=== PATIENT | female | born 2000 | race Caucasian/White ===

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

== ENCOUNTER 2022-07-10 23:35 | Emergency (ER) | payer OTHER, SELFPAY ==
[2022-07-10 23:41] VITALS: BP 121/65; PULSE 77; RESP 18; TEMP 36.6; O2SAT 99; BMI 46.0
[2022-07-11 00:13] LABS: MANUAL DIFF FLAG NO
[2022-07-11 00:16] LABS: Appearance Urine Cloudy; Basophils Absolute Auto 0.1 X10*3/uL (0.0-0.2); Basophils Percent Auto 0.5 % (0-2); Color Urine Yellow; Eosinophils Absolute Auto 0.2 X10*3/uL (0.0-0.4); Eosinophils Percent Auto 1.4 % (0-4); Glucose Urine UA Negative (Negative); Hematocrit 39.2 % (37.0-47.0); Hemoglobin 12.6 g/dl (12.0-16.0); Imm Gran Abs Auto 0.09 X10*3/uL (0.00-0.03); Imm Gran Pct Auto 0.8 % (0.0-0.4); Leukocyte Esterase Urine Negative (Negative); Lymphocytes Absolute Auto 2.5 X10*3/uL (1.2-4.9); Lymphocytes Percent Auto 22.5 % (20-40); Mean Corpuscular HGB Conc 32.1 g/dl (31.0-35.0); Mean Corpuscular Hemoglobin 27.4 pg (27.0-33.0); Mean Corpuscular Volume 85.2 fL (80.0-98.0); Mean Platelet Volume 11.1 fL (9.4-12.3); Monocytes Absolute Auto 0.8 X10*3/uL (0.1-1.2); Monocytes Percent Auto 7.6 % (2-11); Neutrophils Absolute Auto 7.4 x10*3/uL (2.0-8.3); Neutrophils Percent Auto 67.2 % (45-73); Nitrite Urine Negative (Negative); PH 5.5 (5.0-9.0); Platelet Count 255 X10*3/uL (160-400); Red Cell Distribution Width 13.7 % (11.0-16.0); Specific Gravity - Urine >= 1.030 (1.005-1.025); Urine Blood Negative (Negative); Urine Ketones Negative (Negative); Urine Protein Negative (Neg-Trace)
[2022-07-11 00:18] LABS: UPreg QC Valid YES; Urine Pregnancy NEGATIVE (NEGATIVE)
[2022-07-11 00:31] LABS: Alanine Aminotransferase 13 U/L (0-31); Albumin Level 3.9 g/dL (3.5-5.0); Alkaline Phosphatase 84 U/L (39-117); Anion Gap 12 (12-20); Aspartate Amino Transferase 13 U/L (5-31); Bilirubin Direct 0.1 mg/dL (0.0-0.5); Bilirubin Total 0.5 mg/dL (0.0-1.0); Blood Urea Nitrogen 15 mg/dL (9-16); Calcium 8.8 mg/dL (8.4-10.2); Carbon Dioxide 26 mmol/L (22-29); Chloride 105 mmol/L (96-108); Creatinine Clr Calc Pharmacy 174.8; Estimated Glomerular Filt Rate > 60; Glucose Random 105 mg/dL (60-115); Lipase 24 U/L (8-78); Sodium 139 mmol/L (135-145); Total Protein 6.4 g/dL (6.5-8.0)
[2022-07-11 00:38] LABS: HCG Quantitative < 2 mIU/mL
--- NOTE | 2022-07-11 01:17 | ED.ABDPAIN ---
HPI - Abdominal Pain General Chief Complaint: Abdominal Pain Stated Complaint: stomach pain Time Seen by Provider: 07/11/22 01:16 Source: patient Mode of arrival: ambulatory Limitations: no limitations History of Present Illness HPI narrative: Patient with no significant past medical history with increase stress and anxiety been noticing diffuse lower abdominal discomfort for last 3 weeks did few test which were negative patient LMP was 3/15 worried which might be has slight nausea, no vomiting no fever no vaginal discharge no urinary symptoms able to eat well normal bowel movements Related Data Previous Rx's Medication Instructions Recorded naproxen 500 mg tablet 500 mg PO BID PRN pain 10 days #20 09/29/21 tabs prednisone 20 mg tablet 40 mg PO DAILY 5 days #10 tabs 09/29/21 dicyclomine 20 mg tablet 20 mg PO QID PRN abdominal pain 07/11/22 #20 tabs Allergies Allergy/AdvReac Type Severity Reaction Status Date / Time iodine Allergy Hives Verified 07/10/22 23:47 shellfish derived Allergy Hives Verified 07/10/22 23:47 Review of Systems Review of Systems Yes all other systems are reviewed and are negative [facility] Past Medical History Medical History Asthma Bipolar 1 disorder Gallstones Social History Social History Alcohol intake: never Patient Tobacco Use Status: Never used Tobacco Advance Directives: No Advance Directives Information Provided: Yes Physical Exam ED Vital Signs: Vital Signs - 24 hr 07/10/22 23:41 Temperature 98 F Pulse Rate 77 Respiratory Rate 18 Blood Pressure 121/65 Pulse Oximetry 99 Oxygen Delivery Method Room Air BMI result Body Mass Index 46.0 Appearance: Alert. Oriented X3. No acute distress. Eyes: PERRLA, No Nystagmus ENT: Pharynx normal. Oral Mucosa moist Neck: Normal inspection. Neck supple. CVS: Normal heart rate and rhythm. Pulses normal. Respiratory: No respiratory distress. Equal air entry bilateral, no wheezing/rales/rhonchi Abdomen: Soft mild diffuse tenderness no rebound tenderness or guarding Bowel sounds are present, no mass palpable, no CVA tenderness Skin: Skin warm and dry. Normal skin color. Normal skin turgor. Extremities: No lower extremity edema. Neuro: Oriented X 3. No motor deficit. Medical Decision Making Medical Decision Making MDM Narrative: Patient with nonspecific abdominal disc test negative labs are stable likely IBS discharge patient home [facility] Lab Data [facility] Lab Attestation statement: I reviewed the patient's lab results. 07/11/22 00:10 07/11/22 00:10 Labs: Lab Results 07/11/22 07/11/22 07/11/22 Range/Units 00:10 00:10 00:10 WBC 11.0 H (4.8-10.8) X10*3/uL RBC 4.60 (4.20-5.50) X10*6/uL Hgb 12.6 (12.0-16.0) g/dl Hct 39.2 (37.0-47.0) % MCV 85.2 (80.0-98.0) fL MCH 27.4 (27.0-33.0) pg MCHC 32.1 (31.0-35.0) g/dl RDW 13.7 (11.0-16.0) % Plt Count 255 (160-400) X10*3/uL MPV 11.1 (9.4-12.3) fL Immature Gran % (Auto) 0.8 H (0.0-0.4) % Neut % (Auto) 67.2 (45-73) % Lymph % (Auto) 22.5 (20-40) % Graves % (Auto) 7.6 (2-11) % Eos % (Auto) 1.4 (0-4) % Baso % (Auto) 0.5 (0-2) % Lymph # (Auto) 2.5 (1.2-4.9) X10*3/uL Graves # (Auto) 0.8 (0.1-1.2) X10*3/uL Eos # (Auto) 0.2 (0.0-0.4) X10*3/uL Baso # (Auto) 0.1 (0.0-0.2) X10*3/uL Abs Immat Gran (auto) 0.09 H (0.00-0.03) X10*3/uL Absolute Neuts (auto) 7.4 (2.0-8.3) x10*3/uL Absolute Nucleated RBC 0.000 (0.0-0.012) X10*3/uL Nucleated RBC % (auto) 0.0 (0.0-0.2) /100WBC Sodium 139 (135-145) mmol/L Potassium 4.0 (3.3-5.1) mmol/L Chloride 105 (96-108) mmol/L Carbon Dioxide 26 (22-29) mmol/L Anion Gap 12 (12-20) BUN 15 (9-16) mg/dL Creatinine 0.66 (0.5-1.4) mg/dL Estim Creat Clear Calc 174.8 Estimated GFR > 60 Random Glucose 105 (60-115) mg/dL Calcium 8.8 D (8.4-10.2) mg/dL Total Bilirubin 0.5 (0.0-1.0) mg/dL Direct Bilirubin 0.1 (0.0-0.5) mg/dL AST 13 (5-31) U/L ALT 13 (0-31) U/L Alkaline Phosphatase 84 (39-117) U/L Total Protein 6.4 L (6.5-8.0) g/dL Albumin 3.9 (3.5-5.0) g/dL Lipase 24 (8-78) U/L Beta HCG, Quant < 2 mIU/mL Urine Color Urine Appearance Urine pH (5.0-9.0) Ur Specific [place] (1.005-1.025) Urine Protein (Neg-Trace) mg/dL Urine Glucose (UA) (Negative) mg/dL Urine Ketones (Negative) mg/dL Urine Blood (Negative) Urine Nitrite (Negative) Ur Leukocyte Esterase (Negative) Urine Test (NEGATIVE) 07/11/22 07/11/22 Range/Units 00:10 00:10 WBC (4.8-10.8) X10*3/uL RBC (4.20-5.50) X10*6/uL Hgb (12.0-16.0) g/dl Hct (37.0-47.0) % MCV (80.0-98.0) fL MCH (27.0-33.0) pg MCHC (31.0-35.0) g/dl RDW (11.0-16.0) % Plt Count (160-400) X10*3/uL MPV (9.4-12.3) fL Immature Gran % (Auto) (0.0-0.4) % Neut % (Auto) (45-73) % Lymph % (Auto) (20-40) % Graves % (Auto) (2-11) % Eos % (Auto) (0-4) % Baso % (Auto) (0-2) % Lymph # (Auto) (1.2-4.9) X10*3/uL Graves # (Auto) (0.1-1.2) X10*3/uL Eos # (Auto) (0.0-0.4) X10*3/uL Baso # (Auto) (0.0-0.2) X10*3/uL Abs Immat Gran (auto) (0.00-0.03) X10*3/uL Absolute Neuts (auto) (2.0-8.3) x10*3/uL Absolute Nucleated RBC (0.0-0.012) X10*3/uL Nucleated RBC % (auto) (0.0-0.2) /100WBC Sodium (135-145) mmol/L Potassium (3.3-5.1) mmol/L Chloride (96-108) mmol/L Carbon Dioxide (22-29) mmol/L Anion Gap (12-20) BUN (9-16) mg/dL Creatinine (0.5-1.4) mg/dL Estim Creat Clear Calc Estimated GFR Random Glucose (60-115) mg/dL Calcium (8.4-10.2) mg/dL Total Bilirubin (0.0-1.0) mg/dL Direct Bilirubin (0.0-0.5) mg/dL AST (5-31) U/L ALT (0-31) U/L Alkaline Phosphatase (39-117) U/L Total Protein (6.5-8.0) g/dL Albumin (3.5-5.0) g/dL Lipase (8-78) U/L Beta HCG, Quant mIU/mL Urine Color Yellow Urine Appearance Cloudy Urine pH 5.5 (5.0-9.0) Ur Specific [place] >= 1.030 H (1.005-1.025) Urine Protein Negative (Neg-Trace) mg/dL Urine Glucose (UA) Negative (Negative) mg/dL Urine Ketones Negative (Negative) mg/dL Urine Blood Negative (Negative) Urine Nitrite Negative (Negative) Ur Leukocyte Esterase Negative (Negative) Urine Test NEGATIVE (NEGATIVE) Medications Administered Discontinued Medications Generic Name Dose Route Start Last Admin Trade Name Freq PRN Reason Stop Dose Admin Dicyclomine HCl 20 mg 07/11/22 01:24 07/11/22 01:39 Dicyclomine Hcl 10 Mg Capsule PO 07/11/22 01:25 20 mg ONCE ONE Administration Discharge Plan Discharge Clinical Impression: Irritable bowel syndrome Patient Disposition: Home, Self-Care Instructions: Irritable Bowel Syndrome (ED) Additional Instructions: Likely you have IBS Drink plenty of fluids Bentyl for bowel spasm and gas Follow with PCP Prescriptions: New dicyclomine 20 mg tablet 20 mg PO QID PRN (Reason: abdominal pain) Qty: 20 0RF No Action naproxen 500 mg tablet 500 mg PO BID PRN (Reason: pain) 10 Days Qty: 20 0RF prednisone 20 mg tablet 40 mg PO DAILY 5 Days Qty: 10 0RF
[2022-07-11] MEDS: Dicyclomine HCl 10 MG CAPSULE 20 MG PO (01:39)
== END 2022-07-11 01:49 | disposition home or self-care (01) ==
PROVIDERS: Emergency Provider Internal Medicine; PCP Hospitalist
DX: K58.9 Irritable bowel syndrome, unspecified (principal); R10.30 Lower abdominal pain, unspecified
CPT/HCPCS: 36415; 80048; 80076; 81003; 81025; 83690; 84702; 85025; 99282; 99283

== ENCOUNTER 2022-07-23 06:33 | Emergency (ER) | payer OTHER, SELFPAY ==
--- NOTE | 2022-07-23 | ECG_ITS ---
Test Reason : CHEST PAIN Blood Pressure : / mmHG Vent. Rate : 081 BPM Atrial Rate : 081 BPM P-R Int : 178 ms QRS Dur : 090 ms QT Int : 382 ms P-R-T Axes : 005 017 021 degrees QTc Int : 443 ms Poor data quality, interpretation may be adversely affected Normal sinus rhythm Normal ECG No previous ECGs available Referred By: Generic ED Physician Electronically Signed By:NICHOLE CEDILLO MD
--- NOTE | ~2022-07-23 | XR_ITS ---
EXAMINATION: XR CHEST CLINICAL INFORMATION: Chest pain COMPARISON: None available. TECHNIQUE: 2 views of the chest were obtained. FINDINGS: No significant abnormality is noted involving the heart, lungs, mediastinum, bony thorax or soft tissues. XR/XR chest 2V IMPRESSION: Unremarkable chest examination.
[2022-07-23 06:51] VITALS: BP 124/72; PULSE 83; RESP 17; TEMP 36.9; O2SAT 98; BMI 46.0
[2022-07-23 07:07] VITALS: BP 124/72; PULSE 81; RESP 18; TEMP 36.9; O2SAT 98
[2022-07-23 07:14] LABS: Hematocrit 41.7 % (37.0-47.0); Hemoglobin 13.2 g/dl (12.0-16.0); Mean Corpuscular HGB Conc 31.7 g/dl (31.0-35.0); Mean Corpuscular Hemoglobin 27.1 pg (27.0-33.0); Mean Corpuscular Volume 85.6 fL (80.0-98.0); Platelet Count 230 X10*3/uL (160-400); Red Blood Count 4.87 X10*6/uL (4.20-5.50); Red Cell Distribution Width 13.3 % (11.0-16.0); White Blood Count 7.9 X10*3/uL (4.8-10.8)
--- NOTE | 2022-07-23 07:21 | ED.CHESTPAIN ---
HPI - Chest Pain General Chief Complaint: Chest Pain Stated Complaint: Chest pain/ throwing up blood Time Seen by Provider: 07/23/22 06:56 Source: patient Mode of arrival: ambulatory Limitations: no limitations History of Present Illness HPI narrative: This is a 22 years old female presented to the emergency department complaining of vomiting chest discomfort upper abdominal pain, she states that she noted some blood in the vomiting. She has history of obesity, microcytic anemia, status post cholecystectomy. She states the pain is getting better at this time MD complaint: chest pain Onset (ago): hour(s) (3) Prior episodes: No Onset: during rest Pain location: substernal Pain radiation: none Quality: aching Relieving factors: nothing Exacerbating factors: nothing Context: recent illness Associated symptoms: vomiting Related Data Previous Rx's Medication Instructions Recorded naproxen 500 mg tablet 500 mg PO BID PRN pain 10 days #20 09/29/21 tabs prednisone 20 mg tablet 40 mg PO DAILY 5 days #10 tabs 09/29/21 dicyclomine 20 mg tablet 20 mg PO QID PRN abdominal pain 07/11/22 #20 tabs Allergies Allergy/AdvReac Type Severity Reaction Status Date / Time iodine Allergy Hives Verified 07/10/22 23:47 shellfish derived Allergy Hives Verified 07/10/22 23:47 Review of Systems Constitutional: Constitutional: Reports no additional constitutional complaints ENT: Reports system reviewed and no additional complaints, except as documented Cardiovascular: Cardiovascular: Reports chest pain Gastrointestinal: Gastrointestinal: Reports vomiting PMFSH Past Medical History Medical History Asthma Bipolar 1 disorder Gallstones Social History Social History Alcohol intake: current Alcohol intake frequency: holidays/special occasions only Patient Tobacco Use Status: Never used Tobacco Smoked in Last 30 Days: Yes Use of substances other than those prescribed or required for medical reasons: No Advance Directives: No Advance Directives Information Provided: Yes Physical Exam Vital Signs: Vital Signs: Last Vital Signs Temp 98.2 F 07/23/22 08:57 Pulse 98 07/23/22 08:57 Resp 18 07/23/22 08:57 BP 122/73 07/23/22 08:57 Pulse Ox 100 07/23/22 08:57 O2 Del Method Room Air 07/23/22 08:57 BMI result Body Mass Index 46.0 Const: Other: She looks well she has no toxic-appearing General: cooperative, comfortable and no acute distress Orientation/consciousness: oriented to person, oriented to place, oriented to time and patient oriented x3 HEENT: Head: Yes normal to inspection General nose exam: Normal external nose present Face and sinus: Yes normal facial exam Mouth: Normal oral and palatal mucosa present Neck: Neck: Yes normal visual inspection, Yes full ROM and Yes no lymphadenopathy Chest: Chest palpation & inspection: normal inspection of the chest Resp: Effort & Inspection: normal respiratory effort Auscultation: clear to auscultation bilaterally Cardio: Jugular venous distension: no JVD Rate: regular rate Rhythm: regular rhythm GI: Inspection: Yes normal to inspection Palpation (GI): Soft to palpation, not firm, nontender and no guarding Skin: General skin exam: no rashes or lesions noted and elasticity normal Lesions: no lesions Rashes: no rashes Trauma: no lacerations or abrasions Neuro: General: oriented to person, oriented to place, oriented to time and patient oriented x3 Cranial nerves: Yes CN's II-XII intact bilaterally Course Reevaluation(s) Reevaluation #1: She is feeling much better ,she is asymptomatic at this time Most likely she had a Myranda-Izquierdo tear Time: 09:51 Reevaluation #2: Completely asymptomatic and eating [employer] food brought to her by friend Time: 11:38 Medications Administered Discontinued Medications Generic Name Dose Route Start Last Admin Trade Name Freq PRN Reason Stop Dose Admin Sodium Chloride 1,000 mls @ 999 mls/hr 07/23/22 07:30 07/23/22 08:47 Ns IVCONT 07/23/22 08:30 Infused .Q1H1M [facility] Infusion Ondansetron HCl 4 mg 07/23/22 07:20 07/23/22 07:48 Ondansetron Hcl 4 Mg/2 Ml Vial IVPUSH 07/23/22 07:21 4 mg ONCE ONE Administration Medical Decision Making Medical Decision Making MDM Narrative: Patient presented with nausea vomiting chest pain and possible hematemesis will check labs reassess , clinically she looks well she has stable vital signs she is not tachycardic. 12.10 pt felt better labs wnl ,tolerated po well most likey viral illness and possible Myranda-Izquierdo tear Differential Diagnosis Differential Diagnoses: The differential diagnosis associated with the presentation includes Viral illness/peptic ulcer disease/esophagitis Admission/Observation Consideration of admission/observation: Escalation of care including admission/observation considered Lab Data MDM Lab Attestation statement: I reviewed the patient's lab results. normal labs 07/23/22 07:08 07/23/22 07:08 Labs: Lab Results 07/23/22 07/23/22 07/23/22 Range/Units 07:08 07:08 09:59 WBC 7.9 (4.8-10.8) X10*3/uL RBC 4.87 (4.20-5.50) X10*6/uL Hgb 13.2 (12.0-16.0) g/dl Hct 41.7 (37.0-47.0) % MCV 85.6 (80.0-98.0) fL MCH 27.1 (27.0-33.0) pg MCHC 31.7 (31.0-35.0) g/dl RDW 13.3 (11.0-16.0) % Plt Count 230 (160-400) X10*3/uL MPV 11.0 (9.4-12.3) fL Absolute Nucleated RBC 0.000 (0.0-0.012) X10*3/uL Nucleated RBC % (auto) 0.0 (0.0-0.2) /100WBC Sodium 142 (135-145) mmol/L Potassium 3.7 (3.3-5.1) mmol/L Chloride 107 (96-108) mmol/L Carbon Dioxide 28 (22-29) mmol/L Anion Gap 11 L (12-20) BUN 17 H (9-16) mg/dL Creatinine 0.73 (0.5-1.4) mg/dL Estim Creat Clear Calc 158.0 Estimated GFR > 60 Random Glucose 100 (60-115) mg/dL Calcium 9.1 (8.4-10.2) mg/dL Total Bilirubin 0.3 (0.0-1.0) mg/dL AST 13 (5-31) U/L ALT 12 (0-31) U/L Alkaline Phosphatase 114 (39-117) U/L Total Protein 6.8 (6.5-8.0) g/dL Albumin 4.0 (3.5-5.0) g/dL Urine Color Urine Appearance Urine pH (5.0-9.0) Ur Specific [place] (1.005-1.025) Urine Protein (Neg-Trace) mg/dL Urine Glucose (UA) (Negative) mg/dL Urine Ketones (Negative) mg/dL Urine Blood (Negative) Urine Nitrite (Negative) Ur Leukocyte Esterase (Negative) Urine RBC (0-2) /HPF Urine WBC (0-5) /HPF Ur Squamous Epith Cells (0-2) /HPF Urine Bacteria (None Seen) Hyaline Casts (0-2) /LPF Urine Test (NEGATIVE) Urine Opiates Screen Not Detected (Not Detect) Urine Fentanyl Screen Not Detected (Not Detect) Ur Barbiturates Screen Not Detected (Not Detect) Ur Phencyclidine Scrn Not Detected (Not Detect) Ur Amphetamines Screen Not Detected (Not Detect) U Benzodiazepines Scrn Not Detected (Not Detect) Urine Cocaine Screen Not Detected (Not Detect) U Marijuana (THC) Screen POSITIVE H (Not Detect) 07/23/22 07/23/22 Range/Units 10:01 10:01 WBC (4.8-10.8) X10*3/uL RBC (4.20-5.50) X10*6/uL Hgb (12.0-16.0) g/dl Hct (37.0-47.0) % MCV (80.0-98.0) fL MCH (27.0-33.0) pg MCHC (31.0-35.0) g/dl RDW (11.0-16.0) % Plt Count (160-400) X10*3/uL MPV (9.4-12.3) fL Absolute Nucleated RBC (0.0-0.012) X10*3/uL Nucleated RBC % (auto) (0.0-0.2) /100WBC Sodium (135-145) mmol/L Potassium (3.3-5.1) mmol/L Chloride (96-108) mmol/L Carbon Dioxide (22-29) mmol/L Anion Gap (12-20) BUN (9-16) mg/dL Creatinine (0.5-1.4) mg/dL Estim Creat Clear Calc Estimated GFR Random Glucose (60-115) mg/dL Calcium (8.4-10.2) mg/dL Total Bilirubin (0.0-1.0) mg/dL AST (5-31) U/L ALT (0-31) U/L Alkaline Phosphatase (39-117) U/L Total Protein (6.5-8.0) g/dL Albumin (3.5-5.0) g/dL Urine Color Yellow Urine Appearance Clear Urine pH 8.5 (5.0-9.0) Ur Specific [place] 1.020 (1.005-1.025) Urine Protein Negative (Neg-Trace) mg/dL Urine Glucose (UA) Negative (Negative) mg/dL Urine Ketones Negative (Negative) mg/dL Urine Blood Negative (Negative) Urine Nitrite Negative (Negative) Ur Leukocyte Esterase Negative (Negative) Urine RBC 0-2 (0-2) /HPF Urine WBC 0-5 (0-5) /HPF Ur Squamous Epith Cells 3-5 (0-2) /HPF Urine Bacteria 1+ (None Seen) Hyaline Casts 0-2 (0-2) /LPF Urine Test NEGATIVE (NEGATIVE) Urine Opiates Screen (Not Detect) Urine Fentanyl Screen (Not Detect) Ur Barbiturates Screen (Not Detect) Ur Phencyclidine Scrn (Not Detect) Ur Amphetamines Screen (Not Detect) U Benzodiazepines Scrn (Not Detect) Urine Cocaine Screen (Not Detect) U Marijuana (THC) Screen (Not Detect) Independent Interpretation I performed an independent interpretation of an: EKG and Plain X-Ray Interpretation: Normal sinus rhythm rate [address]-T change normal CXR Radiology Impression Discussion of test interpretation with radiology: I have reviewed the radiologist's reading. Radiologist Impression: EXAMINATION: XR CHEST CLINICAL INFORMATION: Chest pain COMPARISON: None available. TECHNIQUE: 2 views of the chest were obtained. FINDINGS: No significant abnormality is noted involving the heart, lungs, mediastinum, bony thorax or soft tissues. XR/XR chest 2V IMPRESSION: Unremarkable chest examination. Dictated By: Jeffy Arellano MD Signed By: <Electronically signed by Jeffy Arellano MD in OV> 07/23/22 0775 Discharge Plan Discharge Clinical Impression: Vomiting Patient Disposition: Home, Self-Care Instructions: Acute Nausea and Vomiting (ED) Prescriptions: No Action naproxen 500 mg tablet 500 mg PO BID PRN (Reason: pain) 10 Days Qty: 20 0RF prednisone 20 mg tablet 40 mg PO DAILY 5 Days Qty: 10 0RF dicyclomine 20 mg tablet 20 mg PO QID PRN (Reason: abdominal pain) Qty: 20 0RF Referrals: Alin Cam MD [Primary Care Provider] - 3 days Interventions: ED Discharge Assessment Last Done: 07/23/22 11:54 Discharge Date/Time: 07/23/22 11:56
[2022-07-23 07:36] LABS: Alanine Aminotransferase 12 U/L (0-31); Alkaline Phosphatase 114 U/L (39-117); Anion Gap 11 (12-20); Aspartate Amino Transferase 13 U/L (5-31); Bilirubin Total 0.3 mg/dL (0.0-1.0); Blood Urea Nitrogen 17 mg/dL (9-16); Calcium 9.1 mg/dL (8.4-10.2); Carbon Dioxide 28 mmol/L (22-29); Chloride 107 mmol/L (96-108); Estimated Glomerular Filt Rate > 60; Glucose Random 100 mg/dL (60-115); Potassium 3.7 mmol/L (3.3-5.1); Sodium 142 mmol/L (135-145); Total Protein 6.8 g/dL (6.5-8.0)
[2022-07-23] MEDS: ondansetron HCL 4 MG/2 ML VIAL IVPUSH (07:48)
[2022-07-23] MEDS: 0.9 % Sodium Chloride 1,000 ML 999 ML IVCONT (07:49)
--- NOTE | 2022-07-23 08:53 | PC.NURSE ---
Alert and oriented X3. IV fluids completed and ambulated to bathroom. States feeling better after fluids.
[2022-07-23 08:57] VITALS: BP 122/73; PULSE 98; RESP 18; TEMP 36.8; O2SAT 100
[2022-07-23 10:19] LABS: Appearance Urine Clear; Color Urine Yellow; Glucose Urine UA Negative (Negative); Leukocyte Esterase Urine Negative (Negative); Nitrite Urine Negative (Negative); PH 8.5 (5.0-9.0); Urine Blood Negative (Negative); Urine Ketones Negative (Negative); Urine Protein Negative (Neg-Trace)
[2022-07-23 10:22] LABS: Amphetamine Screen Urine Not Detected (Not Detect); Barbiturates, Urine Not Detected (Not Detect); Benzodiazepines Screen Urine Not Detected (Not Detect); Cannabinoid Screen Urine POSITIVE (Not Detect); Cocaine Screen Urine Not Detected (Not Detect); Fentanyl, urine Not Detected (Not Detect); Opiate Screen Urine Not Detected (Not Detect); Phencyclidine Screen Urine Not Detected (Not Detect)
[2022-07-23 10:22] LABS: Bacteria Urine 1+ (None Seen); Hyaline Casts Urine 0-2 /LPF (0-2); RBC Urine 0-2 /HPF (0-2); Urine Pregnancy NEGATIVE (NEGATIVE); WBC Urine 0-5 /HPF (0-5)
[2022-07-23 10:23] LABS: UPreg QC Valid YES
== END 2022-07-23 11:56 | disposition home or self-care (01) ==
PROVIDERS: Emergency Provider Emergency Medicine; PCP Hospitalist
DX: R11.10 Vomiting, unspecified (principal); F12.90 Cannabis use, unspecified, uncomplicated; Z79.899 Other long term (current) drug therapy
CPT/HCPCS: 36415; 71046; 80053; 80307; 81001; 81025; 85027; 93005; 96361; 96374; 99284; 99285; J2405

== ENCOUNTER 2024-01-27 22:52 | Emergency (ER) | payer OTHER, SELFPAY ==
--- NOTE | ~2024-01-27 | XR_ITS ---
EXAMINATION: XR CHEST CLINICAL INFORMATION: Cough. COMPARISON: July 23, 2022. TECHNIQUE: 2 views of the chest were obtained. FINDINGS: No significant abnormality is noted involving the heart, lungs, mediastinum, bony thorax or soft tissues. XR/XR chest 2V IMPRESSION: Unremarkable examination. Electronically signed by: Ko Frias MD 01/27/2024 11:51 PM [facility]
[2024-01-27 23:02] VITALS: BP 123/74; PULSE 113; RESP 20; TEMP 36.8; O2SAT 95; BMI 55.1
[2024-01-27 23:48] LABS: COVID-19 Test Negative (Negative); IDNOW Serial# 58CA691E
[2024-01-27 23:52] LABS: IDNOW Serial# 9DB6401D; Influenza A Negative (Negative); Influenza B2 Negative (Negative)
--- NOTE | 2024-01-28 00:21 | ED_ITS ---
HPI - General Adult General Chief complaint: Upper Respiratory Symptoms Stated complaint: Cough/URI Time Seen by Provider: 01/28/24 00:20 Source: patient, RN notes reviewed and old records reviewed Mode of arrival: ambulatory Limitations: no limitations History of Present Illness ED Provider: Mulu RAJPUT narrative: 23-year-old female with past medical history significant for asthma presents for evaluation of cough and shortness of breath. The patient reports her symptoms started 2 days ago. She reports coughing clear sputum. She reports nasal and sinus congestion. Denies any fevers or chills She reports that her mother recently had bronchitis pain The patient reports that she is out of her albuterol inhaler No other complaints or concerns at this time Related Data Previous Rx's ?Medication ?Instructions ?Recorded naproxen 500 mg tablet 500 mg PO BID PRN pain 10 days #20 09/29/21 tabs prednisone 20 mg tablet 40 mg (2 x 20 mg) PO DAILY 5 days 09/29/21 #10 tabs dicyclomine 20 mg tablet 20 mg PO QID PRN abdominal pain 07/11/22 #20 tabs albuterol sulfate 90 mcg/actuation 2 inh inhalation Q4-6H PRN 01/28/24 breath activated powder shortness of breath or wheezing #1 inhaler,sensor ea prednisone 20 mg tablet 40 mg (2 x 20 mg) PO DAILY #8 tabs 01/28/24 Allergies Allergy/AdvReac Type Severity Reaction Status Date / Time iodine Allergy Hives Verified 01/27/24 23:03 shellfish derived Allergy Hives Verified 01/27/24 23:03 Review of Systems Constitutional: Constitutional: Denies body ache(s), Denies chills, Denies fever(s) and Denies headache(s) ENT: Denies vertigo, Denies dizziness and Denies headache(s) Cardiovascular: Cardiovascular: Denies chest pain and Reports dyspnea Respiratory: Respiratory: Reports cough, Reports dyspnea and Reports wheezing Gastrointestinal: Gastrointestinal: Denies abdominal pain, Denies nausea and Denies vomiting Musculoskeletal: Musculoskeletal: Denies back pain Integumentary/Breasts: Skin/Breast: Denies rash Neurologic: Denies vertigo, Denies dizziness and Denies headache(s) Psychiatric: Psychiatric: Denies anxiety Allergic/Immunologic: Allergic/Immunologic: Reports wheezing PMFSH Past Medical History Medical History Asthma Bipolar 1 disorder Gallstones Social History Social History Alcohol intake: current Alcohol intake frequency: holidays/special occasions only Patient Tobacco Use Status: Never used Tobacco Advance Directives: No Do you have a plan to hurt others: No Plan Physical Exam ED Vital Signs: Vital Signs - 24 hr 01/27/24 23:02 Temperature 98.3 F Pulse Rate 113 H Respiratory Rate 20 Blood Pressure 123/74 Pulse Oximetry 95 Oxygen Delivery Method Room Air BMI result Body Mass Index 55.1 Const General: healthy appearing, comfortable, no acute distress, alert and awake Nutritional Appearance: well nourished Orientation/consciousness: patient oriented x3 HENMT Head: Yes normocephalic and Yes atraumatic Ears: TM's normal bilaterally Eyes Eyelids: Yes eyelids normal Conjunctivae: conjunctivae normal Sclerae: sclerae normal Corneas: corneas normal Pupils: Equal, round and reactive pupils present EOM: EOMs intact bilaterally Neck Neck: Yes full ROM Resp Effort & Inspection: normal respiratory effort, able to speak in complete senten wallace and not labored Cardio Rate: regular rate Rhythm: regular rhythm Skin General skin exam: elasticity normal Neuro General: patient oriented x3 Cranial nerves: Yes Equal, round and reactive pupils present and Yes Bilaterally intact EOM present Cognition (Neuro): normal cognition Extrem Other: Moving all extremities well without any obvious deformities Medications Administered Discontinued Medications Generic Name Dose Route Start Last Admin Trade Name Freq PRN Reason Stop Dose Admin Albuterol/Ipratropium 3 ml 01/28/24 00:26 01/28/24 00:40 Albuterol/Iprat 2.5/0.5mg 3 Ml Ampul.Neb INHALE 01/28/24 00:27 3 ml ONCE ONE Administration Medical Decision Making Medical Decision Making MDM Narrative: 23-year-old female presents for evaluation of flu-like symptoms. She had a viral testing with influenza, COVID and RSV which was negative. Chest x-ray is clear, without signs of pneumonia. The patient be treated with albuterol and prednisone for upper respiratory infection with minor asthma exacerbation. Her vital signs are stable Differential Diagnosis Differential Diagnoses: The differential diagnosis associated with the presentation includes Asthma exacerbation Upper respiratory infection Bronchitis Pneumonia Viral syndrome Lab Data Labs: Lab Results 01/27/24 Range/Units 23:30 COVID-19 (PRASHANTH) Negative (Negative) COVID-19 Clin Com See Note Influenza Type A (HANNA) Negative (Negative) Influenza Type B (HANNA) Negative (Negative) Influenza A & B Note See Note Independent Interpretation I performed an independent interpretation of an: Plain X-Ray Interpretation: No focal infiltrates Radiology Impression Discussion of test interpretation with radiology: I have reviewed the radiologist's reading. Radiologist Impression: FINDINGS: No significant abnormality is noted involving the heart, lungs, mediastinum, bony thorax or soft tissues. XR/XR chest 2V IMPRESSION: Unremarkable examination. Electronically signed by: Ko Frias MD 01/27/2024 11:[address] [facility] Discharge Plan Discharge Clinical Impression: Upper respiratory infection Patient Disposition: Home, Self-Care Instructions: Upper Respiratory Infection (ED) Additional Instructions: Your chest x-ray was normal, your viral swabs were negative. Take prednisone 40 mg daily for the next 4 days starting tomorrow as your 1st dose was given today. Use albuterol as needed for shortness of breath and wheezing Prescriptions: New prednisone 20 mg tablet 40 mg PO DAILY Qty: 8 0RF albuterol sulfate 90 mcg/actuation aero powdr breath act w/sensor 2 inh inhalation Q4-6H PRN (Reason: shortness of breath or wheezing) Qty: 1 0RF No Action naproxen 500 mg tablet 500 mg PO BID PRN (Reason: pain) 10 Days Qty: 20 0RF prednisone 20 mg tablet 40 mg PO DAILY 5 Days Qty: 10 0RF dicyclomine 20 mg tablet 20 mg PO QID PRN (Reason: abdominal pain) Qty: 20 0RF Print Language: Azeri
[2024-01-28] MEDS: Albuterol/Iprat 2.5/0.5MG 3 ML AMPUL.NEB INHALE (00:40)
[2024-01-28 00:45] VITALS: PULSE 102; RESP 18; O2SAT 96
[2024-01-28] MEDS: predniSONE 20 MG TABLET 40 MG PO (00:51)
[2024-01-28 01:04] VITALS: BP 123/74; PULSE 102; RESP 18; TEMP 36.8; O2SAT 95
== END 2024-01-28 01:04 | disposition home or self-care (01) ==
PROVIDERS: Emergency Provider Internal Medicine; PCP Internal Medicine
DX: J06.9 Acute upper respiratory infection, unspecified (principal); R05.9 Cough, unspecified; R06.02 Shortness of breath; Z11.52 Encounter for screening for COVID-19; Z79.899 Other long term (current) drug therapy
CPT/HCPCS: 71046; 87502; 87635; 94640; 99283

== ENCOUNTER 2025-01-02 14:19 | Outpatient (AMB) | payer OTHER, SELFPAY ==
--- NOTE | 2025-01-02 14:19 | MHC.OFFVIS ---
Vital Signs 01/02/25 14:29 Height 5 ft 4 in Weight 248 lb BMI 42.6 BP 122/70 Intake Visit Reasons: New patient excessive and frequent menses Director Emergency: Director Emergency Present (Silvana) Accompanied by: Self / Same As Patient Allergies iodine Allergy (Verified 01/02/25 14:26) Hives shellfish derived Allergy (Verified 01/02/25 14:26) Hives Medication List - Last Reconciled 01/02/25 by Danyell Kaur CNM No Known Home Meds Is last menstrual period known: Yes Last menstrual period: 12/03/24 Post menopausal: No Patient : No HPI HPI New patient excessive and frequent menses: Details: This is a very lengthy visit for this patient. She is a 24-year-old female she has never been here before. She is seeking help with her heavy painful periods. She has been overweight her entire life and tells me that she was 100 lb when she was 7 years old and only got bigger since she was 300+ lb last year and she has been working on trying to lose weight herself this past year. She has been unsuccessful finding a primary care provider since she was last seen some years ago [facility]. She was raised 1st by her mother and then DCF gotten involved and she was then with her grandmother so she grew up between [place] and the [facility] and is now back in [place] again. 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 She is working on trying to have a 1554-0556 calorie diet every day and goes walking many days with her friend who is also trying to lose weight who is 300 and something lb and also she says she is active in her job. She is beginning to learn a lot about the details of losing weight and paying attention and is noticing when there maybe other influences around her that are not necessarily helpful such as others that eat very very large portions and also sugary ingredients in shakes masking as is healthy option. She used to have a therapist but felt that the age difference was too great and so ended that relationship. She used to be on control pills in her teenage years but she went off of them because she felt they made her crazy. Also she was on progestin only pills which she [facility] visit consult and she says they made her crazy to she did try them for 6 months but ultimately stopped those in thinking back about her history about pills she recalled during this visit that she was also on medicines for depression and that may have been influencing her perception about what it was making her crazy. She says she did have a pelvic exam once in [place] and it was not very comfortable and she started bleeding during the exam she says that they were not able to see very much she acknowledges she probably was clenching quite a bit but she was pretty uncomfortable. She was hoping that there would be something that she could get that was not hormonal that how would help with her periods but I had to inform her that that was in fact not the case. She also is sexually active sometimes with her ex-fiance who she is still sees occasionally. She says she quit smoking a few weeks ago and she is trying very hard not to start again. She is starting to become aware of things that trigger eating such as boredom or being tired and sometimes stress eating as well, In discussing how she feels having lost what she has so far she acknowledged that she does feel when people are looking at her but often that is depending on what she is wearing as well. Discussed the challenges of being overweight and dealing with people's judgment and also the different ways person's can be treated. Discussed her supports and what makes her feel good and she does have certain things that are helpful to her. She and her friend are going on a cruise that her friend is paying for. Discussed the dangers of being on a cruise and the temptations of food and they have already talked about that and are looking at it and we discussed some preliminary plans for avoiding temptations. She is planning on also being very active on the cruise with swimming and walking. Also of challenge is that she has been trying for very long time to get a primary care provider because she feels she would be interested and would benefit from the weight loss injectable medications that people are having success with. She does not think she would be interested in surgery for weight loss because she had gallbladder surgery and she had some complications after the so she would rather avoid surgery if she could. She also has had some cardiac issues. She is able to see some specialists but she has not been able to find a primary care provider and in fact after waiting months and months for an appointment it got canceled and now is not rescheduled until the following year next August. The primary care person apparently as through [facility] though the specialists that she used to see were all up through the [facility] and she got referred to me via an urgent care center, though she says not the 1 connected with [facility]. I did suggest that she may want to consider changing her insurance and trying to find a primary care provider sooner within another system either the [facility] if that is suits her or [facility] if that is possible. In either case, consolidating care to 1 or 2 systems might be more beneficial than care that is not there and disjointed. Discussed nutrition in general and the benefits of vegetables and proteins versus carbs and she has already becoming very aware of unintended calories and sugar etc.. I did ask her what she would like to do as regards her periods and she decided she would like to try going back to the combination pills she had as a teenager and since she is no longer dealing with as many of the psychological issues and the psych meds/depression meds that maybe she will do better so I am going to try her on a low-dose combination OCP but given her BMI I am recommending that she consider making condoms her primary control method and see if we can use the control pill to help improve her menses and approach it from that point of view I did review all the negative side effects of control pills that she may experience and those that would be important to report including severe severe headaches or leg pain. Her control was in normal limits today so it would be acceptable to try her on these. I told her we will see her in 3 months and see how she does and I explained it very carefully how to start the pills how to keep track and how to use the day of the week sticker so that she has always clear on what pill she is taking for what day and does not miss. Discussed side effects such as headaches breast tenderness nausea breakthrough spotting etc. also I recommend that she start the pills on the 1st really heavy day of her next period which should be coming up soon so I recommend she fern picker the pills soon. [facility] Medical History (Updated 01/02/25 @ 16:16 by Danyell Kaur CNM) PVC (premature ventricular contraction) Gallstones Asthma Surgical History (Updated 01/02/25 @ 14:23 by Silvana Best MA) History of cholecystectomy Family History (Updated 01/02/25 @ 14:24 by Silvana Best MA) Maternal Grandfather Colon cancer Maternal Grandmother Colon cancer Maternal Uncle Colon cancer Social History (Updated 01/02/25 @ 14:25 by Silvana Best MA) Household Members: None Alcohol intake: current Alcohol intake frequency: holidays/special occasions only Patient Tobacco Use Status: Never used Tobacco Current occupational status: employed and student Current occupation: [employer] Female Reproductive History Menstrual Age of Menarche: 14 Date of last menstrual period: 12/03/24 control method: none Total pregnancies: 0 Physical Exam Exam Exam: PE deferred except to note and discuss BMI and body self-awareness and weight and blood pressure. Vital Signs: Last Vital Signs BP 122/70 01/02/25 14:29 BMI result Body Mass Index 42.6 Assessment & Plan Assessment & Plan (1) Morbid obesity with BMI of 40.0-44.9, adult: Comment: Is working hard on changing lifelong patterns a/nd habits. Would appreciate help with this. needs a primary care provider. suggestions given Code(s): E66.01 - Morbid (severe) obesity due to excess calories; Z68.41 - Body mass index [BMI] 40.0-44.9, adult Category: Medical (2) Lifelong obesity: Comment: Patient says she was on 100 lb by the time she was 7 years old and was 300+ lb with a BMI of 55 as recently as last year.... She is working hard to address lifelong eating patterns in lifestyle and would appreciate help with this. Code(s): E66.9 - Obesity, unspecified Category: Medical (3) Primary dysmenorrhea: Comment: Usually the 3rd day also occasionally late. Code(s): N94.4 - Primary dysmenorrhea Category: Medical (4) control counseling: Code(s): Z30.09 - Encounter for other general counseling and advice on contraception Category: Medical (5) Counseling for initiation of control method: Comment: Patient is electing to try the combination OCPs again she is normotensive and quit smoking some weeks ago danger signs reviewed and side effects reviewed in great detail. Given BMI I recommend condoms as her primary control method and OCPs to see if they will ameliorate her menses. Code(s): Z30.09 - Encounter for other general counseling and advice on contraception Category: Medical (6) Screening for malignant neoplasm of cervix: Comment: Today we addressed the dysmenorrhea control morbid obesity issues in great detail next visit will include a risk control consultant PE with Pap and testing for STIs and ocp check Code(s): Z12.4 - Encounter for screening for malignant neoplasm of cervix Category: Medical Plan This is a very lengthy visit for this patient. She is a 24-year-old female she has never been here before. She is seeking help with her heavy painful periods. She has been overweight her entire life and tells me that she was 100 lb when she was 7 years old and only got bigger since she was 300+ lb last year and she has been working on trying to lose weight herself this past year. She has been unsuccessful finding a primary care provider since she was last seen some years ago [facility]. She was raised 1st by her mother and then DCF gotten involved and she was then with her grandmother so she grew up between [place] and the [place] and is now back in [place] again. 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 She is working on trying to have a 2265-7168 calorie diet every day and goes walking many days with her friend who is also trying to lose weight who is 300 and something lb and also she says she is active in her job. She is beginning to learn a lot about the details of losing weight and paying attention and is noticing when there maybe other influences around her that are not necessarily helpful such as others that eat very very large portions and also sugary ingredients in shakes masking as is healthy option. She used to have a therapist but felt that the age difference was too great and so ended that relationship. She used to be on control pills in her teenage years but she went off of them because she felt they made her crazy. Also she was on progestin only pills which she [facility] visit consult and she says they made her crazy to she did try them for 6 months but ultimately stopped those in thinking back about her history about pills she recalled during this visit that she was also on medicines for depression and that may have been influencing her perception about what it was making her crazy. She says she did have a pelvic exam once in [place] and it was not very comfortable and she started bleeding during the exam she says that they were not able to see very much she acknowledges she probably was clenching quite a bit but she was pretty uncomfortable. She was hoping that there would be something that she could get that was not hormonal that how would help with her periods but I had to inform her that that was in fact not the case. She also is sexually active sometimes with her ex-fiance who she is still sees occasionally. She says she quit smoking a few weeks ago and she is trying very hard not to start again. She is starting to become aware of things that trigger eating such as boredom or being tired and sometimes stress eating as well, In discussing how she feels having lost what she has so far she acknowledged that she does feel when people are looking at her but often that is depending on what she is wearing as well. Discussed the challenges of being overweight and dealing with people's judgment and also the different ways person's can be treated. Discussed her supports and what makes her feel good and she does have certain things that are helpful to her. She and her friend are going on a cruise that her friend is paying for. Discussed the dangers of being on a cruise and the temptations of food and they have already talked about that and are looking at it and we discussed some preliminary plans for avoiding temptations. She is planning on also being very active on the cruise with swimming and walking. Also of challenge is that she has been trying for very long time to get a primary care provider because she feels she would be interested and would benefit from the weight loss injectable medications that people are having success with. She does not think she would be interested in surgery for weight loss because she had gallbladder surgery and she had some complications after the so she would rather avoid surgery if she could. She also has had some cardiac issues. She is able to see some specialists but she has not been able to find a primary care provider and in fact after waiting months and months for an appointment it got canceled and now is not rescheduled until the following year next August. The primary care person apparently as through [facility] though the specialists that she used to see were all up through the [facility] and she got referred to me via an urgent care center, though she says not the 1 connected with [facility]. I did suggest that she may want to consider changing her insurance and trying to find a primary care provider sooner within another system either the [facility] if that is suits her or [facility] if that is possible. In either case, consolidating care to 1 or 2 systems might be more beneficial than care that is not there and disjointed. Discussed nutrition in general and the benefits of vegetables and proteins versus carbs and she has already becoming very aware of unintended calories and sugar etc.. I did ask her what she would like to do as regards her periods and she decided she would like to try going back to the combination pills she had as a teenager and since she is no longer dealing with as many of the psychological issues and the psych meds/depression meds that maybe she will do better so I am going to try her on a low-dose combination OCP but given her BMI I am recommending that she consider making condoms her primary control method and see if we can use the control pill to help improve her menses and approach it from that point of view I did review all the negative side effects of control pills that she may experience and those that would be important to report including severe severe headaches or leg pain. Her control was in normal limits today so it would be acceptable to try her on these. I told her we will see her in 3 months and see how she does and I explained it very carefully how to start the pills how to keep track and how to use the day of the week sticker so that she has always clear on what pill she is taking for what day and does not miss. Discussed side effects such as headaches breast tenderness nausea breakthrough spotting etc. also I recommend that she start the pills on the 1st really heavy day of her next period which should be coming up soon so I recommend she fern picker the pills soon. This note is constructed using voice recognition software. While every effort has been made to ensure accuracy, finisher brush errors may have been included. Medications: New desog-e.estradiol/e.estradiol 0.15-0.02 mgx21 /0.01 mg x 5 1 tab PO DAILY 84 tabs 4RF Discontinued naproxen Discontinued Reason: Patient Refused 500 mg PO BID 10 days PRN 20 tabs 0RF pain prednisone Discontinued Reason: Patient Completed Course 40 mg (2 x 20 mg) PO DAILY 5 days 10 tabs 0RF albuterol sulfate 90 mcg/actuation Discontinued Reason: Patient Completed Course 2 inhalations inhalation Q4-6H PRN 1 ea 0RF shortness of breath or wheezing prednisone Discontinued Reason: Patient Completed Course 40 mg (2 x 20 mg) PO DAILY 8 tabs 0RF albuterol sulfate 90 mcg/actuation Discontinued Reason: Patient Completed Course 2 inhalations inhalation Q6H 30 days 8.5 grams 0RF dicyclomine Discontinued Reason: Patient Completed Course 20 mg PO QID PRN 20 tabs 0RF abdominal pain Coding Level of Care Code New Pt Level 3 (21368) Diagnoses Morbid obesity with BMI of 40.0-44.9, adult E66.01; Z68.41 Lifelong obesity E66.9 Primary dysmenorrhea N94.4 control counseling Z30.09 Counseling for initiation of control method Z30.09 Screening for malignant neoplasm of cervix Z12.4 Time Spent (min) 90 Comment 100% [id number] discussing her many health challenges and efforts to meet them and plan
[2025-01-02 14:29] VITALS: BP 122/70; BMI 42.6
== END 2025-01-02 16:16 ==
LOC: HO.HWSM 14:19
PROVIDERS: PCP Internal Medicine; Visit Provider Advanced Practice Midwife
DX: E66.01 Morbid (severe) obesity due to excess calories (principal); Z68.41 Body mass index [BMI] 40.0-44.9, adult; E66.9 Obesity, unspecified; N94.4 Primary dysmenorrhea; Z30.09 Encounter for other general counseling and advice on contraception; Z12.4 Encounter for screening for malignant neoplasm of cervix
CPT/HCPCS: 99203

== ENCOUNTER → 2025-01-02 14:19 | Outpatient (BNVA) | payer OTHER, SELFPAY | PROVIDERS: PCP Internal Medicine; Visit Provider Advanced Practice Midwife | DX: Z12.4 Encounter for screening for malignant neoplasm of cervix (principal); N94.4 Primary dysmenorrhea; E66.01 Morbid (severe) obesity due to excess calories; Z68.41 Body mass index [BMI] 40.0-44.9, adult; Z30.09 Encounter for other general counseling and advice on contraception | CPT/HCPCS: 99202 ==